=== PATIENT | male | born 2000 | race Caucasian/White ===

== ENCOUNTER 2018-07-21 11:28 | Emergency (ER) | payer OTHER ==
--- NOTE | 2018-07-21 11:29 | ER Report ---
History and Physical Time Seen By MD: 11:29 HPI/ROS CHIEF COMPLAINT: Ankle injury HISTORY OF PRESENT ILLNESS: Patient is a 18-year-old male who was playing with his dog today when he tripped causing an inversion injury to his right ankle. Since the injury he's had significant pain with swelling to the lateral malleolus. He has painful weightbearing. No prior injury. Patient complains of no proximal leg tenderness. REVIEW OF SYSTEMS: Respiratory: No cough, no dyspnea. Cardiovascular: No chest pain, no palpitations. Gastrointestinal: No vomiting, no abdominal pain. Musculoskeletal: No back pain. Right ankle pain Allergies: Coded Allergies: No Known Drug Allergies (Unverified , 07/23/17) Home Meds Active Scripts Oxycodone Hcl/Acetaminophen (PERCOCET 5-325 MG TABLET) 1 Each Tablet, 1-2 EACH PO Q6H for PAIN, #30 TAB 0 Refills NO more than 6 tablets in 24 hours Prov:JOVANNI GUTIERREZ MD 07/21/18 Past Medical/Surgical History Noncontributory Hx Substance Use Disorder: No Hx Alcohol Use: No Constitutional Vital Sign - Last 24 Hours 07/21/18 07/21/18 07/21/18 07/21/18 11:28 11:35 11:39 11:43 Pulse ??? 71 Resp 29 B/P (MAP) 103/66 (78) 105/64 (78) Pulse Ox 94 07/21/18 07/21/18 07/21/18 07/21/18 11:53 11:58 12:13 12:28 Temp 98.3 Pulse 68 66 47 50 Resp 12 10 11 15 B/P (MAP) 105/64 Pulse Ox 95 96 97 97 O2 Delivery Room Air 07/21/18 07/21/18 12:30 12:43 Pulse 43 Resp 8 B/P (MAP) 103/64 (77) Pulse Ox 97 Physical Exam General appearance: alert no distress Right ankle: Severe lateral swelling There is no obvious deformity to the ankle. There is severe tenderness to the lateral malleolus. Ankle joint is stable and there is no tenderness over the achilles tendon. The foot is non-tender without swelling. Neurologic exam: The patient has normal sensation distal to the injury. Vascular exam: Normal pulses and capillary refill in the foot [ ] DIFFERENTIAL DIAGNOSIS: After history and physical exam differential diagnosis was considered for ankle injury including sprain, fracture, dislocation and soft tissue injury. Medical Decision Making EKG/Imaging Imaging FACILITY: [facility] PATIENT NAME: Anthony Frazier : 2000 MR: [id number] V: [id number] EXAM DATE: [id number] ORDERING PHYSICIAN: JOVANNI GUTIERREZ TECHNOLOGIST: Location: [facility] [place] Patient: Anthony Frazier : 2000 Visit/Account:[id number] Date of Sevice: 07/21/2018 Exam type: TIBIA FIBULA RIGHT, ANKLE 3 VIEW MIN RIGHT INDICATION: Right ankle injury while plane with dog. Swelling and pain. COMPARISON: None Available FINDINGS: No evidence of fracture, dislocation, or acute osseous abnormality of the right ankle or tibia/fibula The ankle mortise is symmetric. There is no significant ankle joint effusion. Moderate lateral ankle soft tissue swelling. No evidence of radiopaque foreign body. IMPRESSION: 1. No acute osseous abnormality of the right ankle or tibia/fibula. 2. Moderate lateral ankle soft tissue swelling. Report Dictated By: Jairo Smith MD at 07/21/2018 12:19 PM Report E-Signed By: Jairo Smith MD at 07/21/2018 12:21 PM WSN:[id number] ED Course/Re-evaluation ED Course 07/21/2018 12:43:06 pm x-ray of the tib-fib area as well as ankle reveals no acute fracture. Decision to Disposition Date: Jul 21, 2018 Decision to Disposition Time: 12:43 Depart Departure Latest Vital Signs Vital Signs Date Time Temp Pulse Resp B/P (MAP) Pulse Ox O2 Delivery O2 Flow Rate FiO2 07/21/18 12:43 43 8 97 07/21/18 12:30 103/64 (77) 07/21/18 11:53 98.3 Room Air Impression: Primary Impression: Ankle sprain Condition: Improved Disposition: HOME OR SELF-CARE Referrals: YANCI MAE MD Call on Sunday morning to make the next available appointment for your ankle injury New Scripts Oxycodone Hcl/Acetaminophen (PERCOCET 5-325 MG TABLET) 1 Each Tablet 1-2 EACH PO Q6H for PAIN, #30 TAB 0 Refills NO more than 6 tablets in 24 hours Prov: JOVANNI GUTIERREZ MD 07/21/18 Patient Instructions: Ankle Sprain (ED), Crutch Instructions (ED) Additional Instructions: No weightbearing to the right lower extremity until cleared by orthopedics Problem Qualifiers Primary Impression: Ankle sprain Encounter type: initial encounter Involved ligament of ankle: unspecified ligament Laterality: right Qualified Codes: S93.401A - Sprain of unspecified ligament of right ankle, initial encounter JOVANNI GUTIERREZ MD Jul 21, 2018 11:29
[2018-07-21] MEDS ORDERED: ONDANSETRON 4 MG/2 ML VIAL IVP ONE (11:40)
[2018-07-21] MEDS ORDERED: NS(*) 0.9% 1000 ML BAG 1,000 ML IR ONE (11:40)
[2018-07-21] MEDS ORDERED: fentaNYL CITR 100 MCG/2 ML AMP IVP ONE (11:40)
--- NOTE | 2018-07-21 12:25 | RADIOLOGY IMAGING REPORT ---
FACILITY: [facility] PATIENT NAME: Anthony Frazier : 2000 MR: [id number] V: [id number] EXAM DATE: [id number] ORDERING PHYSICIAN: JOVANNI GUTIERREZ TECHNOLOGIST: Location: [facility] Patient: Anthony Frazier : 2000 Visit/Account:[id number] Date of Sevice: 07/21/2018 Exam type: TIBIA FIBULA RIGHT, ANKLE 3 VIEW MIN RIGHT INDICATION: Right ankle injury while plane with dog. Swelling and pain. COMPARISON: None Available FINDINGS: No evidence of fracture, dislocation, or acute osseous abnormality of the right ankle or tibia/fibula The ankle mortise is symmetric. There is no significant ankle joint effusion. Moderate lateral ankle soft tissue swelling. No evidence of radiopaque foreign body. IMPRESSION: 1. No acute osseous abnormality of the right ankle or tibia/fibula. 2. Moderate lateral ankle soft tissue swelling. Report Dictated By: Jairo Smith MD at 07/21/2018 12:19 PM Report E-Signed By: Jairo Smith MD at 07/21/2018 12:21 PM WSN:[id number]
--- NOTE | 2018-07-21 12:26 | RADIOLOGY IMAGING REPORT ---
FACILITY: [facility] PATIENT NAME: Anthony Frazier : 2000 MR: [id number] V: [id number] EXAM DATE: [id number] ORDERING PHYSICIAN: JOVANNI GUTIERREZ TECHNOLOGIST: Location: [facility] [place] Patient: Anthony Frazier : 2000 Visit/Account:[id number] Date of Sevice: 07/21/2018 Exam type: TIBIA FIBULA RIGHT, ANKLE 3 VIEW MIN RIGHT INDICATION: Right ankle injury while plane with dog. Swelling and pain. COMPARISON: None Available FINDINGS: No evidence of fracture, dislocation, or acute osseous abnormality of the right ankle or tibia/fibula The ankle mortise is symmetric. There is no significant ankle joint effusion. Moderate lateral ankle soft tissue swelling. No evidence of radiopaque foreign body. IMPRESSION: 1. No acute osseous abnormality of the right ankle or tibia/fibula. 2. Moderate lateral ankle soft tissue swelling. Report Dictated By: Jairo Smith MD at 07/21/2018 12:19 PM Report E-Signed By: Jairo Smith MD at 07/21/2018 12:21 PM WSN:[id number]
[2018-07-21 12:30] VITALS: BP 103/64
[2018-07-21] MEDS ORDERED: HYDROMORPHONE HCL 1 MG/ML SYRINGE IVP ONE (12:30)
[2018-07-21] MEDS ORDERED: OXYC-865 PO (12:33)
== END 2018-07-21 12:53 | disposition home or self-care (01) ==
LOC: ER 11:49
DX: S93.401A Sprain of unspecified ligament of right ankle, initial encounter (principal)
CPT/HCPCS: 73590; 73610; 96361; 96374; 96375; 99284; J1170; J3010; J7030